=== PATIENT | male | born 1955 | race Caucasian/White ===

== ENCOUNTER 2021-03-12 06:50 | Day surgery (SDC) | payer MEDICARE ==
[2021-03-12] MEDS ORDERED: Lactated Ringers 1,000 ML IV SCH ×2 (07:00→09:30)
[2021-03-12] MEDS ORDERED: propofoL 50 ML ONE (07:30)
[2021-03-12] MEDS ORDERED: Lidocaine 2% 5 ML SDV ONE (07:35)
[2021-03-12] MEDS ORDERED: Propofol 200 MG/20 ML SDV ONE (09:20)
== END 2021-03-12 10:24 | disposition home or self-care (01) ==
LOC: MW.SDS 06:50
PROVIDERS: ATTEND Surgery
DX: Z12.11 Encounter for screening for malignant neoplasm of colon (principal); K62.1 Rectal polyp; K64.4 Residual hemorrhoidal skin tags; Z98.890 Other specified postprocedural states; Z80.0 Family history of malignant neoplasm of digestive organs; Z01.812 Encounter for preprocedural laboratory examination; Z20.822 Contact with and (suspected) exposure to COVID-19
CPT/HCPCS: 45380; J2704; J7120; U0002; 00812